=== PATIENT | male | born 1950 | race Caucasian/White ===

== ENCOUNTER → 2022-02-22 | Outpatient (CLI) | payer MEDICARE | LOC: KOH-I 12:21 | DX: R06.2 Wheezing (principal); R06.02 Shortness of breath; R91.8 Other nonspecific abnormal finding of lung field | CPT/HCPCS: 71046 ==

== ENCOUNTER → 2022-03-31 | Outpatient (CLI) | payer MEDICARE | LOC: EXRD 14:04 → HEART 5 14:04 | DX: J18.9 Pneumonia, unspecified organism (principal); R91.8 Other nonspecific abnormal finding of lung field | CPT/HCPCS: 71046 ==

== ENCOUNTER → 2022-06-08 | Outpatient (CLI) | payer MEDICARE | LOC: HEART 5 11:09 | DX: J18.9 Pneumonia, unspecified organism (principal); R94.2 Abnormal results of pulmonary function studies | CPT/HCPCS: 94060; 94729 ==

== ENCOUNTER → 2022-06-21 | Outpatient (CLI) | payer MEDICARE | LOC: CT 09:23 | DX: R06.09 Other forms of dyspnea (principal); Q79.1 Other congenital malformations of diaphragm; J98.11 Atelectasis; I27.20 Pulmonary hypertension, unspecified; I08.1 Rheumatic disorders of both mitral and tricuspid valves | CPT/HCPCS: 71250 ==

== ENCOUNTER → 2022-08-11 | Outpatient (CLI) | payer MEDICARE | LOC: HEART 5 08:08 | DX: I25.10 Atherosclerotic heart disease of native coronary artery without angina pectoris (principal); R06.02 Shortness of breath; R07.9 Chest pain, unspecified | CPT/HCPCS: 78452; A9502; J2785 ==